=== PATIENT | female | born 1975 ===

== ENCOUNTER 2017-04-03 09:27 | Emergency (ER) | payer MEDICAID, MEDICARE ==
[2017-04-03 09:27] VITALS: BMI 44.9
[2017-04-03 09:37] VITALS: BP 111/78; PULSE 95; RESP 19; TEMP 97.8; O2SAT 97
[2017-04-03] MEDS ORDERED: Silver Sulfadiazine 1% Cream (20 gm) TOP STA (09:45)
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
== END 2017-04-03 10:30 | disposition home or self-care (01) ==
LOC: ED 09:27
DX: T23.132A Burn of first degree of multiple left fingers (nail), not including thumb, initial encounter (principal); X19.XXXA Contact with other heat and hot substances, initial encounter; Y93.G1 Activity, food preparation and clean up; Y92.000 Kitchen of unspecified non-institutional (private) residence as the place of occurrence of the external cause